=== PATIENT | female | born 1990 | race Caucasian/White ===

== ENCOUNTER 2021-06-10 11:56 | Emergency (ER) | payer OTHER, SELFPAY ==
--- NOTE | ~2021-06-10 | CT_ITS ---
EXAMINATION: CT ABDOMEN AND PELVIS WITHOUT CONTRAST CLINICAL INFORMATION: Left flank pain COMPARISON: None TECHNIQUE: Multidetector volumetric imaging was performed from the superior aspect of the liver through the pubic symphysis. Sagittal and coronal reformatted images were obtained on the technologist's workstation. This CT examination was performed using dose optimization techniques as appropriate, variously including the following: *Automated exposure control *Adjustment of mA and/or kV according to patient size (this includes techniques or standardized protocols for targeted exams where dose is matched to indication/reason for exam; i.e. extremities or head) *Use of iterative reconstruction technique DLP: 933 mGy-cm FINDINGS: LUNG BASES: The visualized lung bases are unremarkable. LIVER, GALLBLADDER, AND BILIARY TREE: The liver is normal in size, shape, and attenuation. No focal hepatic lesion or biliary ductal dilatation is present. The gallbladder has been removed. PANCREAS: Unremarkable. SPLEEN: Unremarkable. ADRENAL GLANDS: Unremarkable. KIDNEYS AND URETERS: The kidneys are normal in size, shape, and attenuation. No hydronephrosis, hydroureter, or calculi seen. No perinephric stranding. BLADDER: Not optimally distended. GASTROINTESTINAL TRACT: The small and large bowel are unremarkable. The appendix is unremarkable. ABDOMINAL WALL: There are small umbilical and periumbilical hernias containing fat. LYMPH NODES: There are small, small bowel mesentery and retroperitoneal lymph nodes. There are small bilateral inguinal lymph nodes. No enlarged lymph nodes are seen. VASCULAR: Unremarkable. PELVIC VISCERA: Unremarkable. OSSEOUS STRUCTURES: Unremarkable. CT/CT abdomen pelvis wo con IMPRESSION: No stone or hydronephrosis is seen. Small umbilical and periumbilical hernias containing fat.
--- NOTE | 2021-06-10 12:01 | ED_ITS ---
HPI - Nausea/Vomiting/Diarrhea General Chief complaint: Nausea/Vomiting/Diarrhea Stated complaint: N/V Time Seen by Provider: 06/10/21 12:01 Source: patient Mode of arrival: ambulatory Limitations: no limitations History of Present Illness MD elicited complaint: nausea, vomiting and abdominal pain Onset (ago): week(s) (4) Description of vomiting: food contents Associated nausea: Yes Associated abdominal pain: Yes Location of pain: LUQ Pain consistency: intermittent Severity: mild Quality: stabbing Exacerbating factors: eating Relieving factors: none Context: history of abdominal surgery Associated symptoms: loss of appetite, malaise and nausea/vomiting Related Data Previous Rx's Medication Instructions Recorded prochlorperazine maleate 10 mg 10 mg PO Q8H PRN #30 tab 06/10/21 tablet (Compazine) Allergies Allergy/AdvReac Type Severity Reaction Status Date / Time fluconazole [From DIFLUCAN] Allergy Mild RASH Unverified 07/01/20 16:04 naproxen [NAPROXEN] Allergy Mild AGITATION Unverified 07/01/20 16:04 aripiprazole [From ABILIFY] AdvReac Unknown SI Unverified 07/01/20 16:04 quetiapine [From SEROQUEL] AdvReac Unknown VOMITING Unverified 07/01/20 16:04 ziprasidone [From GEODON] AdvReac Unknown SI Unverified 07/01/20 16:04 Review of Systems Review of Systems: Constitutional : No Weight loss, No Fever, No Chills ENT/Mouth : No sore throat, No Rhinorrhea Eyes: No Swelling, No Redness Cardiovascular : No Chest Pain, No SOB, NoEdema Respiratory : No Cough, No Sputum, No Wheezing Gastrointestinal : Positive Nausea, Positive Vomiting, no Diarrhea, positive abdominal Pain, No Hematochezia, No Melena Genitourinary : No Dysuria, No Urinary Frequency, No Hematuria, No Urgency Musculoskeletal : No joint pain, No Myalgias, No Joint Swelling Skin : No Skin Lesions, No rash Neuro : No Weakness, No Numbness, No Dizziness, No Headache Psych : No Anxiety/Panic, No Depression Heme/Lymph: No Bruising, No Lymphadenopathy Endocrine : No Polyuria, No Polydipsia All other systems reviewed and are negative. Gastrointestinal: Gastrointestinal: Reports nausea PMFSH Past Medical History Attestation statement: The following information was validated with the patient. Medical History (Updated 06/10/21 @ 16:30 by Marimar Mcneill DO) Bipolar 1 disorder Surgical History (Updated 06/10/21 @ 12:33 by Marimar Mcneill DO) Hx of cholecystectomy Social History Social History (Updated 06/10/21 @ 12:33 by Marimar Mcneill DO) Patient Tobacco Use Status: Never used Tobacco Use of substances other than those prescribed or required for medical reasons: No Advance Directives: No Advance Directives Information Provided: No Physical Exam Vital Signs: Vital Signs: Last Vital Signs Pulse 70 06/10/21 16:08 Resp 16 06/10/21 16:08 BP 105/63 06/10/21 16:08 Pulse Ox 98 06/10/21 16:08 Body Mass Index 43.0 Appearance: Alert. Oriented X3. No acute distress. Eyes: Pupils equal, round and reactive to light. ENT: Pharynx normal. Neck: Normal inspection. Neck supple. CVS: Normal heart rate and rhythm. Pulses normal. Respiratory: No respiratory distress. Breath sounds normal. Abdomen: Soft and moderate ttp in LUQ Skin: Skin warm and dry. Normal skin color. Normal skin turgor. Extremities: No lower extremity edema. No calf ttp Neuro: Oriented X 3. No motor deficit. No sensory deficit. Course Course Course Narrative: feels much better at this time, pending CT scan can be DC home if negative signed out to Maddie LACEY MDM - Nausea/Vomiting/Diarrhea MDM Narrative Medical decision making narrative: 31 yo female with hx of bipolar disorder and cholecystectomy at this time very manic and hyperverbal - at this time will need labs, UA, CT scan for renal colic, IVF, dispo per results and findings. Lab Data Result diagrams: 06/10/21 12:50 06/10/21 12:50 Labs: Lab Results 06/10/21 06/10/21 06/10/21 Range/Units 12:50 12:50 12:50 WBC 10.8 (4.8-10.8) X10*3/uL RBC 4.07 L (4.20-5.50) X10*6/uL Hgb 12.2 (12.0-16.0) g/dl Hct 37.1 (37-47) % MCV 91.2 (80-98) fL MCH 30.0 (27.0-33.0) pg MCHC 32.9 (31.0-35.0) g/dl RDW 12.2 (11.0-16.0) % Plt Count 379 (160-400) X10*3/uL MPV 9.2 L (9.4-12.3) fL Immature Gran % (Auto) 0.2 (0.0-0.4) % Neut % (Auto) 83.7 H (45-73) % Lymph % (Auto) 10.0 L (20-40) % Wolfe % (Auto) 5.1 (2-11) % Eos % (Auto) 0.6 (0-4) % Baso % (Auto) 0.4 (0-2) % Lymph # (Auto) 1.1 L (1.2-4.9) X10*3/uL Wolfe # (Auto) 0.6 (0.1-1.2) X10*3/uL Eos # (Auto) 0.1 (0.0-0.4) X10*3/uL Baso # (Auto) 0.0 (0.0-0.2) X10*3/uL Abs Immat Gran (auto) 0.02 (0.00-0.03) X10*3/uL Absolute Neuts (auto) 9.1 H (2.0-8.3) X10*3/uL Absolute Nucleated RBC 0.000 (0.0-0.012) X10*3/uL Nucleated RBC % (auto) 0.0 (0.0-0.2) /100WBC Sodium 141 (135-145) mmol/L Potassium 3.7 (3.3-5.1) mmol/L Chloride 103 (96-108) mmol/L Carbon Dioxide 29 (22-29) mmol/L Anion Gap 13 (12-20) BUN 8 L (9-16) mg/dL Creatinine 0.95 (0.5-1.4) mg/dL Estim Creat Clear Calc 92.7 Estimated GFR > 60 Random Glucose 113 (60-115) mg/dL Calcium 9.8 (8.4-10.2) mg/dL Magnesium 2.6 (1.6-2.6) mg/dL Total Bilirubin 0.6 (0.0-1.0) mg/dL Direct Bilirubin 0.2 (0.0-0.5) mg/dL AST 21 (5-31) U/L ALT 25 (0-31) U/L Alkaline Phosphatase 93 (39-117) U/L Total Protein 7.5 (6.5-8.0) g/dL Albumin 4.2 (3.5-5.0) g/dL Lipase 19 (8-78) U/L Urine Color Urine Appearance Urine pH (5.0-8.0) Ur Specific [place] (1.005-1.025) Urine Protein (NEG-TRACE) MG/DL Urine Glucose (UA) (NEG) MG/DL Urine Ketones (NEG) MG/DL Urine Blood (NEG) Urine Nitrite (NEG) Ur Leukocyte Esterase (NEG) Urine RBC (0) /HPF Urine WBC (0-4) /HPF Ur Squamous Epith Cells /LPF Ur Renal Epithelial Cell /LPF Urine Bacteria /LPF Urine Mucus /LPF Urine Test (NEGATIVE) [place] (0.60-1.20) mmol/L COVID-19 (ZIGGY) Negative (Negative) COVID-19 Clin Com See Note 06/10/21 06/10/21 06/10/21 Range/Units 13:25 15:38 15:38 WBC (4.8-10.8) X10*3/uL RBC (4.20-5.50) X10*6/uL Hgb (12.0-16.0) g/dl Hct (37-47) % MCV (80-98) fL MCH (27.0-33.0) pg MCHC (31.0-35.0) g/dl RDW (11.0-16.0) % Plt Count (160-400) X10*3/uL MPV (9.4-12.3) fL Immature Gran % (Auto) (0.0-0.4) % Neut % (Auto) (45-73) % Lymph % (Auto) (20-40) % Wolfe % (Auto) (2-11) % Eos % (Auto) (0-4) % Baso % (Auto) (0-2) % Lymph # (Auto) (1.2-4.9) X10*3/uL Wolfe # (Auto) (0.1-1.2) X10*3/uL Eos # (Auto) (0.0-0.4) X10*3/uL Baso # (Auto) (0.0-0.2) X10*3/uL Abs Immat Gran (auto) (0.00-0.03) X10*3/uL Absolute Neuts (auto) (2.0-8.3) X10*3/uL Absolute Nucleated RBC (0.0-0.012) X10*3/uL Nucleated RBC % (auto) (0.0-0.2) /100WBC Sodium (135-145) mmol/L Potassium (3.3-5.1) mmol/L Chloride (96-108) mmol/L Carbon Dioxide (22-29) mmol/L Anion Gap (12-20) BUN (9-16) mg/dL Creatinine (0.5-1.4) mg/dL Estim Creat Clear Calc Estimated GFR Random Glucose (60-115) mg/dL Calcium (8.4-10.2) mg/dL Magnesium (1.6-2.6) mg/dL Total Bilirubin (0.0-1.0) mg/dL Direct Bilirubin (0.0-0.5) mg/dL AST (5-31) U/L ALT (0-31) U/L Alkaline Phosphatase (39-117) U/L Total Protein (6.5-8.0) g/dL Albumin (3.5-5.0) g/dL Lipase (8-78) U/L Urine Color YELLOW Urine Appearance HAZY Urine pH 6.5 (5.0-8.0) Ur Specific [place] <= 1.005 (1.005-1.025) Urine Protein NEG (NEG-TRACE) MG/DL Urine Glucose (UA) NEG (NEG) MG/DL Urine Ketones NEG (NEG) MG/DL Urine Blood NEG (NEG) Urine Nitrite NEG (NEG) Ur Leukocyte Esterase 1+ H (NEG) Urine RBC 0 (0) /HPF Urine WBC 5-9 H (0-4) /HPF Ur Squamous Epith Cells 3+ /LPF Ur Renal Epithelial Cell TRACE /LPF Urine Bacteria TRACE /LPF Urine Mucus 2+ /LPF Urine Test NEGATIVE (NEGATIVE) [place] 0.35 L (0.60-1.20) mmol/L COVID-19 (ZIGGY) (Negative) COVID-19 Clin Com Discharge Plan Discharge Clinical Impression: Acute left flank pain Vomiting Qualifiers: Vomiting type: unspecified Vomiting Intractability: non-intractable Nausea presence: with nausea Qualified Code(s): R11.2 - Nausea with vomiting, unspe cified Patient Disposition: Home, Self-Care Instructions: Acute Nausea and Vomiting (ED), Abdominal Pain (ED) Additional Instructions: return to ED for any worsening symptoms or concerns Prescriptions: New prochlorperazine maleate [Compazine] 10 mg tablet 10 mg PO Q8H PRN (Reason: nausea and vomiting) Qty: 30 RF: 0 Referrals: Dipesh Shah MD [Primary Care Provider] - 3 days (if not better)
[2021-06-10 12:05] VITALS: BP 113/86; BP 126/73; PULSE 100; PULSE 111; RESP 16; O2SAT 97; BMI 43.0
[2021-06-10] MEDS: 0.9 % Sodium Chloride 1,000 ML 999 ML IVCONT (12:49)
[2021-06-10] MEDS: ondansetron HCL 4 MG/2 ML VIAL IVPUSH (12:49)
[2021-06-10 13:03] LABS: MANUAL DIFF FLAG NO
[2021-06-10 13:04] LABS: Basophils Percent Auto 0.4 % (0-2); Eosinophils Absolute Auto 0.1 X10*3/uL (0.0-0.4); Eosinophils Percent Auto 0.6 % (0-4); Hematocrit 37.1 % (37-47); Hemoglobin 12.2 g/dl (12.0-16.0); Imm Gran Abs Auto 0.02 X10*3/uL (0.00-0.03); Imm Gran Pct Auto 0.2 % (0.0-0.4); Lymphocytes Absolute Auto 1.1 X10*3/uL (1.2-4.9); Mean Corpuscular HGB Conc 32.9 g/dl (31.0-35.0); Mean Corpuscular Volume 91.2 fL (80-98); Mean Platelet Volume 9.2 fL (9.4-12.3); Monocytes Absolute Auto 0.6 X10*3/uL (0.1-1.2); Monocytes Percent Auto 5.1 % (2-11); Neutrophils Absolute Auto 9.1 X10*3/uL (2.0-8.3); Neutrophils Percent Auto 83.7 % (45-73); Platelet Count 379 X10*3/uL (160-400); Red Blood Count 4.07 X10*6/uL (4.20-5.50); Red Cell Distribution Width 12.2 % (11.0-16.0); White Blood Count 10.8 X10*3/uL (4.8-10.8)
[2021-06-10 13:33] LABS: COVID-19 Test Negative (Negative); IDNOW Serial# 9DD0AD1C
[2021-06-10 13:36] LABS: Alanine Aminotransferase 25 U/L (0-31); Albumin Level 4.2 g/dL (3.5-5.0); Alkaline Phosphatase 93 U/L (39-117); Anion Gap 13 (12-20); Aspartate Amino Transferase 21 U/L (5-31); Bilirubin Direct 0.2 mg/dL (0.0-0.5); Bilirubin Total 0.6 mg/dL (0.0-1.0); Blood Urea Nitrogen 8 mg/dL (9-16); Calcium 9.8 mg/dL (8.4-10.2); Carbon Dioxide 29 mmol/L (22-29); Chloride 103 mmol/L (96-108); Creatinine Clr Calc Pharmacy 92.7; Estimated Glomerular Filt Rate > 60; Glucose Random 113 mg/dL (60-115); Lipase 19 U/L (8-78); Magnesium 2.6 mg/dL (1.6-2.6); Potassium 3.7 mmol/L (3.3-5.1); Sodium 141 mmol/L (135-145); Total Protein 7.5 g/dL (6.5-8.0)
[2021-06-10 13:57] LABS: Lithium 0.35 mmol/L (0.60-1.20)
[2021-06-10] MEDS: diphenhydrAMINE HCL 50 MG/ML VIAL 25 MG IVPUSH (14:07)
[2021-06-10] MEDS: Prochlorperazine Edisylate 10 MG/2 ML VIAL 5 MG IVPUSH (14:07)
[2021-06-10 15:47] LABS: Glucose Urine UA NEG (NEG); Leukocyte Esterase Urine 1+ (NEG); Nitrite Urine NEG (NEG); PH 6.5 (5.0-8.0); Specific Gravity - Urine <= 1.005 (1.005-1.025); UACC Culture Trigger YES; Urine Blood NEG (NEG); Urine Ketones NEG (NEG); Urine Protein NEG (NEG-TRACE)
[2021-06-10 15:49] LABS: Appearance Urine HAZY; Color Urine YELLOW; UPreg QC Valid YES; Urine Pregnancy NEGATIVE (NEGATIVE)
[2021-06-10 15:55] LABS: Bacteria Urine TRACE /LPF; Mucus Urine 2+ /LPF; RBC Urine 0 /HPF (0); Renal Epithelial Cells Urine TRACE /LPF; Squamous Epithelial Cell Urine 3+ /LPF
[2021-06-10 16:08] VITALS: BP 105/63; PULSE 70; RESP 16; O2SAT 98
[2021-06-10] MEDS: LORazepam 1 MG TABLET PO (16:37)
== END 2021-06-10 17:59 | disposition home or self-care (01) ==
PROVIDERS: Emergency Provider Emergency Medicine; PCP Internal Medicine
DX: R10.9 Unspecified abdominal pain (principal); R11.2 Nausea with vomiting, unspecified; Z20.822 Contact with and (suspected) exposure to COVID-19; F31.9 Bipolar disorder, unspecified; Z79.899 Other long term (current) drug therapy
CPT/HCPCS: 36415; 74176; 80048; 80076; 80178; 81001; 81025; 83690; 83735; 85025; 87086; 87635; 96361; 96374; 96375; 99284; J1200; J2405

== ENCOUNTER 2021-06-27 17:23 | Emergency (ER) | payer OTHER, SELFPAY ==
[2021-06-27 18:37] VITALS: BP 139/104; PULSE 83; RESP 16; TEMP 36.4; O2SAT 98; BMI 43.0
--- NOTE | 2021-06-27 18:41 | ED_ITS ---
HPI - Abdominal Pain General Chief Complaint: Abdominal Pain Stated Complaint: abd pain Time Seen by Provider: 06/27/21 18:37 Source: patient Mode of arrival: ambulatory Limitations: no limitations History of Present Illness HPI narrative: 31-year-old female presenting to the ED with request for a general surgeon referral for her hernias. She reports that she has been having intermittent abdominal pain from the hernia sites and she went to her primary care provider and they sent her here for further evaluation and treatment. Patient was seen here on 06/10/2021 and had a full workup and this is when she was told that she had hernias. And since then she felt like they have been bothering her. Denies any other symptoms complaints or concerns at this time. MD elicited complaint: abdominal pain Pertinent past history: other (Abdominal hernias) Onset (ago): day(s) Pain Consistency: intermittent Location: periumbilical Severity: mild Quality: aching Radiation: none Migration to: no migration Exacerbating factors: nothing Relieving factors: nothing Associated symptoms: denies other symptoms Related Data Previous Rx's Medication Instructions Recorded prochlorperazine maleate 10 mg 10 mg PO Q8H PRN #30 tab 06/10/21 tablet (Compazine) oxycodone 5 mg tablet 5 mg PO Q6H PRN #14 tab 06/27/21 Allergies Allergy/AdvReac Type Severity Reaction Status Date / Time fluconazole [From DIFLUCAN] Allergy Mild RASH Unverified 07/01/20 16:04 naproxen [NAPROXEN] Allergy Mild AGITATION Unverified 07/01/20 16:04 aripiprazole [From ABILIFY] AdvReac Unknown SI Unverified 07/01/20 16:04 quetiapine [From SEROQUEL] AdvReac Unknown VOMITING Unverified 07/01/20 16:04 ziprasidone [From GEODON] AdvReac Unknown SI Unverified 07/01/20 16:04 Review of Systems Review of Systems Constitutional : No Weight loss, No Fever, No Chills, No Night Sweats, No Fatigue, NoMalaise ENT/Mouth: No ear pain, No sore throat, No Difficulty swallowing Cardiovascular : No Chest Pain, No SOB, No Dyspnea on Exertion, No Orthopnea, NoEdema, No Palpitations Respiratory : No Cough, No Sputum, No Wheezing, No Dyspnea Gastrointestinal : Positive abdominal pain, No Nausea, No Vomiting, No Diarrhea, No blood streaked emesis, No coffee-ground emesis, No gross hematemesis, No blood streak stool, No gross hematochezia, No Melena Genitourinary : No irregular bleeding, No Dysuria, No Urinary Frequency, No Hematuria,No Urinary Incontinence, No Urgency, No Flank Pain Musculoskeletal : No joint pain, No Myalgias, No Joint Swelling Skin : No Skin Lesions, No rash Neuro : No Weakness, No Numbness, No Paresthesias, No Loss of Consciousness, NoDizziness, No Headache Psych : No Social Issues, Heme/Lymph: No Bruising, No Bleeding,No Lymphadenopathy Endocrine : No Polyuria, No Polydipsia, No Temperature Intolerance Yes all other systems are reviewed and are negative Physical Exam Vital Signs: Vital Signs: Last Vital Signs Temp 97.6 F 06/27/21 18:37 Pulse 83 06/27/21 18:37 Resp 16 06/27/21 18:37 BP 139/104 H 06/27/21 18:37 Pulse Ox 98 06/27/21 18:37 Body Mass Index 43.0 vital signs have been reviewed as normal and appeared to be correct. Blood pressure normal. Heart rate normal. Respiration rate normal. Temperature normal. Oxygen saturation normal. Appearance: Alert. Oriented X3. No acute distress. Head: Normal external exam. Normocephalic. Eyes: PERRLA. EOMI. Conjunctiva and sclera normal. Eyelids normal. ENT: Pharynx normal. Uvula midline. Moist mucous membranes. No trismus noted. No drooling noted. No muffled voice noted. Neck: Normal inspection. Neck supple. FROM. No adenopathy. No meningeal signs. CVS: Normal heart rate and rhythm. Heart sound normal. No murmurs noted. Pulses normal throughout. Respiratory: No respiratory distress. Painless inspiration. Breath sounds normal. No wheezes/rales/rhonchi noted. Chest nontender. No accessory muscle usage noted or decreased air movement noted. Abdomen: Soft and nontender. Nondistended. No guarding. No rigidity. Bowel sounds normal in all 4 quadrants. No distention noted. No organomegaly noted. No visible injury noted. No rebound tenderness. Negative Rovsing sign. Negative obturator's sign. No hernia noted on my exam. Not consistent with incarceration of hernia. Negative psoas sign. Negative Hassan sign. Back: No CVA tenderness. Full range of motion noted. Skin: Skin warm and dry. Normal skin color. Normal skin turgor. No rashes/lesions/lacerations noted. Extremities: Extremities exhibit normal range of motion. Extremities nontender. Neuro: Oriented X 3. No motor deficit. No sensory deficit. Reflexes normal. Normal steady gait. Course Course Course Narrative: 31-year-old female presenting to the ED with complaints of intermittent hernia pain over the past few days no pain at this time requesting for general surgery referral. No imaging or labs indicated at this time as patient reports she does not have any active abdominal pain at this time she denies any other symptoms. On exam she does not have any tenderness and there are no signs of incarcerated or strangulated hernia. Will DC home with symptomatic treatment a General surgery referral and instructions return if any new or worsening symptoms to follow up with primary care provider as well. Patient understands agrees with this plan. MDM - Abdominal Pain Medical Records Attestation: I reviewed the patient's medical records. Discharge Plan Discharge Clinical Impression: Hernia, umbilical Patient Disposition: Home, Self-Care Instructions: Umbilical Hernia (ED), Umbilical Hernia Repair (DC) Prescriptions: New oxycodone 5 mg tablet 5 mg PO Q6H PRN (Reason: pain) Qty: 14 RF: 0 No Action prochlorperazine maleate [Compazine] 10 mg tablet 10 mg PO Q8H PRN (Reason: nausea and vomiting) Qty: 30 RF: 0 Referrals: Joni Marley MD [Physician] - 2 days (Call to make a follow-up appointment within the next few weeks) Interventions: ED Discharge Assessment Last Done: 06/27/21 18:50 Discharge Date/Time: 06/27/21 18:51 Print Language: Greenlandic [facility] Past Medical History Attestation statement: The following information was validated with the patient. Medical History Bipolar 1 disorder Surgical History Hx of cholecystectomy Social History Social History Patient Tobacco Use Status: Never used Tobacco Advance Directives: No Advance Directives Information Provided: No
== END 2021-06-27 18:51 | disposition home or self-care (01) ==
PROVIDERS: Emergency Provider Emergency Medicine; PCP Internal Medicine
DX: K42.9 Umbilical hernia without obstruction or gangrene (principal); R10.84 Generalized abdominal pain; Z79.899 Other long term (current) drug therapy
CPT/HCPCS: 99283

== ENCOUNTER → 2021-08-24 14:13 | Outpatient (BNVA) | payer OTHER, SELFPAY | PROVIDERS: PCP Internal Medicine; Referring Provider Internal Medicine; Visit Provider Surgery | DX: R10.33 Periumbilical pain (principal); F41.8 Other specified anxiety disorders; F20.9 Schizophrenia, unspecified; F06.34 Mood disorder due to known physiological condition with mixed features; Z90.49 Acquired absence of other specified parts of digestive tract; Z88.3 Allergy status to other anti-infective agents; Z88.8 Allergy status to other drugs, medicaments and biological substances; Z79.899 Other long term (current) drug therapy | CPT/HCPCS: 99202 ==

== ENCOUNTER 2021-09-16 14:37 | Outpatient (REF) | payer OTHER, SELFPAY ==
--- NOTE | ~2021-09-16 | CT_ITS ---
EXAMINATION: CT ABDOMEN AND PELVIS WITHOUT CONTRAST CLINICAL INFORMATION: Periumbilical pain COMPARISON: Previous CT of the abdomen and pelvis May 2021 TECHNIQUE: Multidetector volumetric imaging was performed from the superior aspect of the liver through the pubic symphysis. Sagittal and coronal reformatted images were obtained on the technologist's workstation. This CT examination was performed using dose optimization techniques as appropriate, variously including the following: *Automated exposure control *Adjustment of mA and/or kV according to patient size (this includes techniques or standardized protocols for targeted exams where dose is matched to indication/reason for exam; i.e. extremities or head) *Use of iterative reconstruction technique DLP: 610 mGy-cm FINDINGS: LUNG BASES: The visualized lung bases are unremarkable. LIVER, GALLBLADDER, AND BILIARY TREE: The liver is normal in size, shape, and attenuation. No focal hepatic lesion or biliary ductal dilatation is present. The gallbladder has been removed. PANCREAS: Unremarkable. SPLEEN: Unremarkable. ADRENAL GLANDS: Unremarkable. KIDNEYS AND URETERS: The kidneys are normal in size, shape, and attenuation. No hydronephrosis, hydroureter, or calculi seen. No perinephric stranding. BLADDER: Unremarkable. GASTROINTESTINAL TRACT: The small and large bowel are unremarkable. The appendix is unremarkable. ABDOMINAL WALL: There is small umbilical and supraumbilical hernias containing fat. LYMPH NODES: There are no enlarged lymph nodes. There are small retroperitoneal lymph nodes that are stable. There is no ascites. VASCULAR: Unremarkable. PELVIC VISCERA: Unremarkable. OSSEOUS STRUCTURES: Unremarkable. CT/CT abdomen pelvis wo con IMPRESSION: Small umbilical and supraumbilical hernias containing fat. This is similar to May 2021 exam. Fleischner guidelines were followed.
== END 2021-09-16 14:38 | disposition home or self-care (01) ==
LOC: HO.CT 14:37
PROVIDERS: PCP Internal Medicine; Visit Provider Surgery
DX: R10.33 Periumbilical pain (principal)
CPT/HCPCS: 74176

== ENCOUNTER → 2021-09-29 14:33 | Outpatient (BNVA) | payer OTHER, SELFPAY | PROVIDERS: PCP Internal Medicine; Referring Provider Internal Medicine; Visit Provider Surgery | DX: R10.33 Periumbilical pain (principal) | CPT/HCPCS: 99212 ==

== ENCOUNTER 2024-11-24 12:18 | Outpatient (REF) | payer OTHER, SELFPAY ==
--- OUTSIDE RECORDS SUMMARY | 2024-11-24 14:56 | XMS_ITS | Clinical Summary ---
Author Organization [facility] ity Address [address] [place] [address] Care Team Providers Care Office Clinician Name Role Phone Cecily Mcfarland Primary Care Provider [phone] Allergies Active Allergy Reactions Criticality Noted Date Comments Blue Dye Nausea And Vomiting High 10/26/2021 Fluticasone Propion-Salmeterol Headache Medium 03/02/2023 Patiente states gets also chest pain and thrush. Fluticasone-Umeclidin- Vilanter Headache Medium 03/02/2023 Patient states getting thrush, headaches and chest discomfort Naproxen Sodium Other 06/20/2013 Up for 2 days, non-stop talking and feeling like she always has to move Medications umeclidinium-vi lanteroL (Anoro Ellipta) 62.5-25 mcg/actuation inhaler Inhale 1 puff 1 (one) time each day. 08/24/2023 Active albuterol HFA (PROAIR HFA ; PROVENTIL HFA ; VENTOLIN HFA) 90 mcg/actuation inhaler Inhale 2 puffs every 4 (four) hours if needed for wheezing. 08/24/2023 Active levothyroxine (SYNTHROID, LEVOTHROID) 50 mcg tablet Take 1 tab daily along with the 100 mcg 02/27/2022 Active levothyroxine (SYNTHROID, LEVOTHROID) 100 mcg tablet Take 1 tablet by mouth daily along with the 50 mcg 01/31/2022 Active gabapentin (NEURONTIN) 100 mg capsule Take 1 capsule (100 mg total) by mouth at bedtime. Active benztropine (COGENTIN) 1 mg tablet Take 1 tablet (1 mg total) by mouth 2 (two) times a day. Active inhalational spacing device inhaler 1 Device by Does not apply route as needed for Other (to be used with inahlers). 04/19/2022 Active Active Problems Problem Noted Date Diagnosed Date Hypothyroid 12/03/2023 Depression 12/03/2023 Anxiety 12/03/2023 Schizophrenia 12/03/2023 Morbid obesity with BMI of 40.0-44.9, adult 11/15 Lab test negative for COVID-19 virus 04/19/2021 Reactive airway disease 02/18/2021 High cholesterol 02/15/2018 PVD (peripheral vascular disease) 01/24/2016 Immunizations Name Administration Dates Next Due HPV 9-valent (Gardisil) 9yo to less than 46yo ,03/07/2021 HPV, Quadrivalent 09/26/2016,09/22/2014 Influenza Quadravalent, MDCK , 0.5ml, preservative free (Flucelvax) 6mo and older 06/25/2020 Influenza trivalent, 0.5mL, preservative free (Fluarix; FluLaval; Fluzone) ages 6mo and older (Afluria) 3 years and older 11/14/2017,08/04/2016 Influenza trivalent, with pr eservative (Fluzone; Afluria) 6mo and older 08/04/2016,07/25/2014 Moderna SARS-CoV-2 COVID-19, mRNA, LNP-S, preservative free 07/01/2021,05/29/2021 Pneumococcal polysaccharide 23 valent (Pneumovax 23) 2yo and older 12/26/2021 Tdap Tetanus diptheria acell ular pertussis (Boostrix; Adacel) 7yo and older 10/21/2013 Surgical History Surgery Date Site/Laterality Comments BREAST REDUCTION 2009 PROCEDURE: CO BREAST REDUCTION MULTIPLE TOOTH EXTRACTIONS 09/27/2017 PROCEDURE: EACH ADD TOOTH EXTRACTION; COMMENT: all teeth removed ESOPHAGOGASTRODUODENOSCOPY 04/11/2018 PROCEDURE: CO EGD TRANSORAL BIOPSY SINGLE/MULTIPLE; COMMENT: [facility] - mild antral gastritis, otherwise normal. Pathology: nonspecific mild gastritis without H. pylori. CHOLECYSTECTOMY PROCEDURE: CO LAPAROSCOPY SURG CHOLECYSTECTOMY BREAST REDUCTION PROCEDURE: CO BREAST REDUCTION Medical History Medical History Date Comments Depression DX:Depression Anxiety DX:Anxiety Schizophrenia (CMS/HCC) DX:Schiz ophrenia (HCC) Hypothyroid DX:Hypothyroid Poor personal hygiene DX:Poor pe rsonal hygiene Morbid obesity (CMS/HCC) DX:Morb id obesity (HCC) Family History Medical History Relation Name Comments Heart attack Aunt Heart attack Father Ulcers Father Diabetes Father's side Other: cervical ca Other Adriana Heart attack Uncle Breast cancer Neg Hx Cancer of Small Bowel Neg Hx Colon cancer Neg Hx Kidney cancer Neg Hx Ovarian cancer Neg Hx Pancreatic cancer Neg Hx Uterine cancer Neg Hx Relation Name Status Comments Aunt Alive paternal Father Alive Father's side Mother Alive Other Adriana Alive Sister Alive Uncle Alive paternal Social History Tobacco Use Types Packs/Day Years Used Date Smoking Tobacco: Never Smokeless Tobacco: Never Alcohol Use Standard Drinks/Week Comments Yes 0 (1 standard drink = 0.6 oz pur e alcohol) Comments Unknown Sex and Gender Information Value Date Recorded Sex Assigned at Not on file Legal Sex Female 4:02 PM EST Gender Identity Not on file Sexual Orientation Not on file Obstetrics History Last Filed Vital Signs Vital Sign Reading Time Taken Comments Blood Pressure 124/60 07/24/2024 11:26 AM EDT Pulse 67 07/24/2024 11:26 AM EDT Temperature - - Respiratory Rate - - Oxygen Saturation - - Inhaled Oxygen Concentration - - Weight 83.6 kg (184 lb 3.2 oz) 07/24/2024 11:26 AM EDT Height 152.4 cm (5') 07/24/2024 11:26 AM EDT Body Mass Index 35.97 07/24/2024 11:26 AM EDT Plan of Treatment Upcoming Encounters Date Type Department Care Team (Late st Contact Info) Description 01/22/2025 1:00 PM EDT Office Visit Pulmonolgy - [place] [address] [facility] [address] [place] [id number] Neha Leach NP [address] [facility] [address] [place] [address] Health Maintenance Due Date Last Done Comments Hepatitis B Vaccines (1 of 3 - 19+ 3-dose series) 01/15/2011 DTaP,Tdap,and Td Vaccines (2 - Td or Tdap) 11/18/2013 10/21/2013 Depression Screening 09/23/2022 Social Influencers of Health Screening 09/23/2022 Pneumococcal Vaccine: Pediatrics (0 to 5 Years) and At-Risk Patients (6 to 64 Years) (2 of 2 - PCV) 12/26/2022 12/26/2021 Cervical Cancer Screening: Pap Smear 03/07/2024 03/07/2021, 03/07/2021 COVID-19 Vaccine ( - season) 2024 07/01/2021, 05/29/2021 Influenza Vaccine (#1) 2024 , 11/14/2017, 08/04/2016, Additional history exists Cholesterol Screening (Lipid Panel) 12/21/2025 12/21/2020 HIV Screening Completed 03/07/2021 Hepatitis C Screening Completed 03/07/2021 HPV Vaccines Completed 04/19/2021, 02/13, 09/26/2016, Additional history exists HIB Vaccines Aged Out No longer eligi ble based on patient's age to complete this topic Hepatitis A Vaccines Aged Out No long er eligible based on patient's age to complete this topic IPV Vaccines Aged Out No longer eligi ble based on patient's age to complete this topic MMR Vaccines Aged Out No longer eligi ble based on patient's age to complete this topic Meningococcal ACWY Vaccine Aged Out N o longer eligible based on patient's age to complete this topic Meningococcal B Vacine Aged Out No lo nger eligible based on patient's age to complete this topic RSV Immunization Patients Under 20 months Aged Out No longer eligible based on patient's age to complete this topic Varicella Vaccines Aged Out No longer eligible based on patient's age to complete this topic Procedures Procedure Name Priority Date/Time Associated Diagnosis Comments HM HEPATITIS C SCREENING Routine 03/07/2021 HM HIV SCREENING Routine 03/07/2021 PAP SMEAR Routine 03/07/2021 LIPID PANEL Routine 12/21/2020 from Last 3 Months or Most Recently Relevant to Health Maintenance Results * Hm HIV Screening (03/07/2021) Pathologist [facility] HIV Screening abstracted Historical Provider HEALTH MAINTENANCE Final Result * Hepatitis C Screening (03/07/2021) Pathologist [facility] Hepatitis C Screening abstracted Historical Provider HEALTH MAINTENANCE Final Result * Pap smear (03/07/2021) 03/07/2021 Narrative HISTORICAL TESTING LAB RESULTING AGENCY - 03/17/2021 7:26 AM EDT [id number] THINPREP PAP, IMAGED: NEGATIVE FOR SQUAMOUS INTRAEPITHELIAL LESION AND MALIGNANCY . RAJAT TOBAR(ASCP) (CASE ELECTRONICALLY SIGNED 03 16 2021) ADEQUACY: SATISFACTORY ENDOCERVICAL/TRANSFORMATION ZONE COMPONENT PRESENT. SOURCE: THINPREP PAP HPV IF ASCUS, CERVICAL, IMAGED CLINICAL INFORMATION: HPV IF DIAGNOSIS OF ASCUS. PAP HX NEG. NO LMP RECORDED. Z12.4, Z01.419 Ann [facility] LAB CYTOLOGY ORDERABLES Fin al Result HISTORICAL TESTING LAB RESULTING AGENCY * (ABNORMAL) Lipid panel (12/21/2020) Pathologist [facility] LDL/HDL Ratio 3 0 - 4 Triglycerides 97 0 - 150 mg/dL Cholesterol 177 0 - 200 mg/dL HDL 52 >=40 mg/dL LDL Cholesterol 106(A) 0 - 100 mg/dL Blood Venous blood specimen / Unknown Historical Provider LAB BLOOD ORDERABLES Brittaney l Result from Last 3 Months or Most Recently Relevant to Health Maintenance Care Teams Office Clinician Relationship Specialty Start Date End Date Cecily Mcfarland PA [address] [place] [id number] PCP - General 08/24/23
[2024-11-24 15:13] LABS: Thyroid Stimulating Hormone 50.18 uIU/mL (0.32-4.0)
[2024-11-25 13:08] LABS: Thyroid Peroxidase Antibodies 49 IU/mL (<9)
== END 2024-11-24 12:19 | disposition home or self-care (01) ==
LOC: HO.LAB 12:18
PROVIDERS: PCP Physician Assistant; Visit Provider Student in an Organized Health Care Education/Training Program
DX: E06.3 Autoimmune thyroiditis (principal); Z79.890 Hormone replacement therapy
CPT/HCPCS: 36415; 84439; 84443; 86376; 99202

== ENCOUNTER 2024-11-24 12:18 | Outpatient (AMB) | payer OTHER, SELFPAY ==
--- NOTE | 2024-11-24 12:40 | MHC.OFFVIS ---
Vital Signs 11/24/24 12:51 Height 5 ft 1.65 in Weight 173 lb 1.006 oz BMI 32.0 BP 100/64 Blood Pressure Location Rt brachial Position Sitting Pulse 84 Pulse Source Pulse Oximeter Pulse Oximetry (%) 98 Oxygen Delivery Method Room Air Intake Visit Reasons: Hypothyroidism/Left vm Intake Note: Hypotyroidism Purchaser Required: No Allergies fluconazole [From DIFLUCAN] Allergy (Mild, Verified 11/24/24 12:52) RASH naproxen [NAPROXEN] Allergy (Mild, Verified 11/24/24 12:52) AGITATION aripiprazole [From ABILIFY] Adverse Reaction (Unknown, Verified 11/24/24 12:52) SI quetiapine [From SEROQUEL] Adverse Reaction (Unknown, Verified 11/24/24 12:52) VOMITING ziprasidone [From GEODON] Adverse Reaction (Unknown, Verified 11/24/24 12:52) SI PFSH Medical History Asthma Bipolar 1 disorder Morbid obesity Thyroid disorder Umbilical pain Surgical History Hx of cholecystectomy Family History Father High blood pressure Social History Patient Tobacco Use Status: Never used Tobacco Physical Exam Vital Signs: Last Vital Signs Pulse 84 11/24/24 12:51 BP 100/64 11/24/24 12:51 Pulse Ox 98 11/24/24 12:51 Oxygen Delivery Method Room Air 11/24/24 12:51 BMI result Body Mass Index 32.0 Coding
--- NOTE | 2024-11-24 12:49 | MHC.OFFVIS ---
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 Accompanied by: Self / Same As Patient Allergies fluconazole [From DIFLUCAN] Allergy (Mild, Verified 11/24/24 12:52) RASH naproxen [NAPROXEN] Allergy (Mild, Verified 11/24/24 12:52) AGITATION aripiprazole [From ABILIFY] Adverse Reaction (Unknown, Verified 11/24/24 12:52) SI quetiapine [From SEROQUEL] Adverse Reaction (Unknown, Verified 11/24/24 12:52) VOMITING ziprasidone [From GEODON] Adverse Reaction (Unknown, Verified 11/24/24 12:52) SI Medication List - Last Reconciled 11/24/24 by Lakeisha Gil MD albuterol sulfate 90 mcg/actuation 2 inhalations inhalation Q6H PRN benztropine 1 mg PO BID gabapentin 100 mg PO BEDTIME levothyroxine mcg PO DAILY umeclidinium-vilanterol 62.5-25 mcg/actuation (Anoro Ellipta) 1 ea inhalation DAILY HPI Comments Details: 34 years old female here today for initial hypothyroidism. Here with partner . Diagnosed with hypothyroidism at age 12/11 05/08/2024 TSH elevated at 19.5, levothyroxine was titrated up to 125 mcg daily. 08/01/2024 TSH noted to be elevated at 8.7 levothyroxine was titrated up to 137 mcg daily, she developed vomiting to this dose, as she has allergies to blue dye with nausea and vomiting. Subsequently she failed her levothyroxine 100 mcg daily prescription. Labs 09/26/2024 TSH 8.5 hi Free T4 1.42 normal. Says currently on 100 mcg of levothyroxine, appropriate administration and adherence. Takes levothyroxine first thing in the morning empty stomach waits 30 mins before breakfast Vomiting from blue dye. Bowel movements regular Periods regular In September lost 22 lbs says its because of her thyroid. Says her mood irritable . Energy is normal. Patient currently denies heat or cold intolerance, hair loss, palpitation, anxiety, , changes in appearance of eyes or vision changes, tremors, increased diaphoresis or dry skin. ? Patient denies any difficulty swallowing, pain on swallowing or voice changes or difficulty breathing. Patient denies any history of childhood neck radiation. Denies having ever used amiodarone or biotin supplements. Was on lithium for short period many years ago. Patient denies any family history of thyroid cancer . Maternal grandmother had hypothyroidism. no plans for She is sexually active Social history Smokes marijuana Not cigarettes Alcohol : 2 nips a day Unemployed , on disability Physical exam General: sitting comfortably in no acute distress HEENT: normocephalic/atraumatic Neck: supple, symmetrical, no thyromegaly , no dorsocervical or supraclavicular fat pads Cardiac: normal heart sounds Pulm: normal breath sounds B/L, no added breath sounds Abd: not distended, no tenderness Extremities: no edema, no signs of myxedema Neuro: AAO x3, Speech: normal, no facial droop, moving all 4 extremities PFSH Medical History Asthma Bipolar 1 disorder Morbid obesity Thyroid disorder Umbilical pain Surgical History Hx of cholecystectomy Family History (Updated 11/24/24 @ 13:16 by Laura Wilkinson CMA) Father High blood pressure Maternal Aunt No problems noted. 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 She has required up titration of her levothyroxine medication in the past few months, however it seems like she required the 137 mcg of levothyroxine dosage which she could not tolerate due to blue dye in it. Given her allergic reaction of vomiting to dyes, she can not tolerate levothyroxine and has had adverse reaction to it, we will prescribe her Tirosint which does not have dyes in it. I will prescribe her Tirosint 137 mcg dose. She will obtain a set of blood work for me today, and 6 weeks after starting Tirosint 137 mcg daily. Plan: -start Tirosint 137 mcg daily -discussed appropriate administration -counseled regarding need for increased thyroid medication in and to call our office if she ever becomes . -do blood work today -repeat another set of blood work after 6 weeks of starting Tirosint -follow up in 8 weeks Plan I spent 45 minutes in reviewing the record, seeing the patient and documenting in the medical record. 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
[2024-11-24 12:51] VITALS: BP 100/64; PULSE 84; O2SAT 98; BMI 32.0
== END 2024-11-24 13:42 | disposition home or self-care (01) ==
PROVIDERS: PCP Physician Assistant; Visit Provider Student in an Organized Health Care Education/Training Program
DX: E06.3 Autoimmune thyroiditis (principal)
CPT/HCPCS: 99204

== ENCOUNTER 2025-01-26 12:12 | Outpatient (REF) | payer OTHER, SELFPAY ==
[2025-01-26 14:04] LABS: Free T4 (Free Thyroxine) 1.24 ng/dL (0.71-1.85); Thyroid Stimulating Hormone 3.26 uIU/mL (0.32-4.0)
--- OUTSIDE RECORDS SUMMARY | 2025-01-26 14:11 | XMS_ITS ---
Author Organization [facility] Address [address] [place] [id number] Care Team Providers Care Press Tender Star Signal Name Role Phone No, PCP Primary Care Provider Ken Puga Unavailable [phone] Encounters Encounter Location Date Provider Diagnosis [facility] [address] [place] [id number] 12/10/2023 Ken Hermosillo Plan Of Treatment No Information Progress Notes * Elizabeth OCHOA LDOB: [birth year] (33 yo M)Acc No.[id number]:12/10/2023 Case Management Patient:?Elizabeth Ochoa Provider:?Ken Bradford :1990???Age:33 Y???Sex:Male Valdez e:12/10/2023 Address:[address] [place], [place] [id number] Pcp:PCP No Subjective: * Chief Complaints: * ??? * HPI: ???Social Service:?Date of encounter?[id number].?Referral Source?walk-in, self.?Interpretation for medical provider?housing.?Follow-up Required:?yes,?Type of follow-up: CM.?Pt comprehension?Pt agrees with plan, Patient understood process and assisted with process.?Action taken (old)?form completion: Intk, authorization to release info.? * Medical History:? Objective: Assessment: Plan: * Treatment: * Images: Billing Information: * Visit Code:? * Procedure Codes:? Care Plan Details* * Sign off status: Completed true * Provider:?Ken Bradford Date:?12/10/2023 Generated for Jordi kaur/Joshua/Zulyitting on:?01/26/2025 02:11 PM EDT History and Physical Notes * HPI (History of Present Illness) Category Sub-Category Detail Notes Social Service Referral Source walk-in, self Interpretation for medical provider hous ing Action taken (old) form completion: Int k, authorization to release info Follow-up Required: yes, Type of follow- up: CM Pt comprehension Pt agrees with plan, Patient understood process and assisted with process Date of encounter [id number]
--- OUTSIDE RECORDS SUMMARY | 2025-01-26 14:11 | XMS_ITS | Patient Health Record ---
Author Organization [facility] Address [address] [place], [place] [phone] Care Team Providers Care Mulling Machine Operator Name Role Phone No, PCP Primary Care Provider Ken Puga Unavailable [phone] Reason For Referral No Information Plan Of Treatment No Information Insurance Providers Payer Name Payer Address Payer Phone Subscriber Number Group Number Insured Name Patient Relationship to Insured Coverage Start Date Coverage End Date [place] Standard [address] [place] [address] [id number] Elizabeth Patel Self - patient is the insured 4
== END 2025-01-26 12:13 | disposition home or self-care (01) ==
LOC: HO.LAB 12:12
PROVIDERS: PCP Physician Assistant; Visit Provider Student in an Organized Health Care Education/Training Program
DX: E06.3 Autoimmune thyroiditis (principal)
CPT/HCPCS: 36415; 84439; 84443; 99212

== ENCOUNTER 2025-01-26 12:27 | Outpatient (AMB) | payer OTHER, SELFPAY ==
[2025-01-26 12:42] VITALS: BP 108/62; PULSE 59; O2SAT 96; BMI 34.3
--- NOTE | 2025-01-26 12:42 | MHC.OFFVIS ---
Vital Signs 01/26/25 12:42 Height 5 ft 1.65 in Weight 185 lb 6.54 oz BMI 34.3 BP 108/62 Blood Pressure Location Lt brachial Position Sitting Pulse 59 Pulse Source Pulse Oximeter Pulse Oximetry (%) 96 Oxygen Delivery Method Room Air Intake Visit Reasons: Hypothyroidism Intake Note: Patient present today for Hypothyroidism follow up. 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 Accompanied by: Self / Same As Patient Allergies fluconazole [From DIFLUCAN] Allergy (Mild, Verified 01/26/25 12:46) RASH naproxen [NAPROXEN] Allergy (Mild, Verified 01/26/25 12:46) AGITATION aripiprazole [From ABILIFY] Adverse Reaction (Unknown, Verified 01/26/25 12:46) SI quetiapine [From SEROQUEL] Adverse Reaction (Unknown, Verified 01/26/25 12:46) VOMITING ziprasidone [From GEODON] Adverse Reaction (Unknown, Verified 01/26/25 12:46) SI Medication List - Last Reconciled 01/26/25 by Lakeisha Gil MD albuterol sulfate 90 mcg/actuation 2 inhalations inhalation Q6H PRN gabapentin 100 mg PO BEDTIME levothyroxine (Tirosint) 137 mcg PO DAILY umeclidinium-vilanterol 62.5-25 mcg/actuation (Anoro Ellipta) 1 ea inhalation DAILY HPI Comments Details: 34 years old female here today for follow up of hypothyroidism. Here with partner . HPI from initial visit Diagnosed with hypothyroidism at age 12/11 05/08/2024 TSH elevated at 19.5, levothyroxine was titrated up to 125 mcg daily. 08/01/2024 TSH noted to be elevated at 8.7 levothyroxine was titrated up to 137 mcg daily, she developed vomiting to this dose, as she has allergies to blue dye with nausea and vomiting. Subsequently she filled her levothyroxine 100 mcg daily prescription. Labs 09/26/2024 TSH 8.5 hi Free T4 1.42 normal. Says currently on 100 mcg of levothyroxine, appropriate administration and adherence. Takes levothyroxine first thing in the morning empty stomach waits 30 mins before breakfast Vomiting from blue dye. Bowel movements regular Periods regular In September lost 22 lbs says its because of her thyroid. Says her mood irritable . Energy is normal. Patient currently denies heat or cold intolerance, hair loss, palpitation, anxiety, , changes in appearance of eyes or vision changes, tremors, increased diaphoresis or dry skin. ? Patient denies any difficulty swallowing, pain on swallowing or voice changes or difficulty breathing. Patient denies any history of childhood neck radiation. Denies having ever used amiodarone or biotin supplements. Was on lithium for short period many years ago. Patient denies any family history of thyroid cancer . Maternal grandmother had hypothyroidism. no plans for She is sexually active Social history Smokes marijuana Not cigarettes Alcohol : 2 nips a day Unemployed , on disability Interval history On tirosint 137 mcg daily , started about 6 weeks ago Labs done today, results in process Reports improved mood and energy Physical exam General: sitting comfortably in no acute distress HEENT: normocephalic/atraumatic Neck: supple, symmetrical, no thyromegaly , no dorsocervical or supraclavicular fat pads Cardiac: normal heart sounds Pulm: normal breath sounds B/L, no added breath sounds Abd: not distended, no tenderness Extremities: no edema, no signs of myxedema Neuro: AAO x3, Speech: normal, no facial droop, moving all 4 extremities Laboratory Tests 11/24/24 13:58 TSH 50.18 H Free T4 0.70 L Thyroid Peroxidase Ab 49 H PFSH Medical History (Updated 11/24/24 @ 13:51 by Lakeisha Gil MD) Hypothyroidism Morbid obesity Asthma Thyroid disorder Umbilical pain Bipolar 1 disorder Surgical History Hx of cholecystectomy Family History (Updated 11/24/24 @ 13:17 by Laura Wilkinsno CMA) Father High blood pressure Maternal Aunt No problems noted. 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 She has required up titration of her levothyroxine medication in the past few months, however it seems like she required the 137 mcg of levothyroxine dosage which she could not tolerate due to blue dye in it. Given her allergic reaction of vomiting to dyes, she can not tolerate levothyroxine and has had adverse reaction to it, we will prescribe her Tirosint which does not have dyes in it. She was prescribed 137 mcg of Tirosint to start on 11/24/2024. Labs prior done on 11/24/2024 showed TSH was high at 50.18, free T4 low at 0.70. Plan: -continue Tirosint 137 mcg daily -discussed appropriate administration -counseled regarding need for increased thyroid medication in and to call our office if she ever becomes . 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
== END 2025-01-26 12:59 | disposition home or self-care (01) ==
PROVIDERS: PCP Physician Assistant; Visit Provider Student in an Organized Health Care Education/Training Program
DX: E06.3 Autoimmune thyroiditis (principal)
CPT/HCPCS: 99213

== ENCOUNTER 2025-04-02 12:28 | Outpatient (REF) | payer OTHER, SELFPAY ==
--- OUTSIDE RECORDS SUMMARY | 2025-04-02 13:36 | XMS_ITS | Patient Health Record ---
Author Organization [facility] Address [address], [place] [phone] Care Team Providers Care Auto Carrier Driver Name Role Phone GavinoZAjohn - DO NOT USE, no PCP Primary Care Prov ider Unavailable Ken Hermosillo Unavailable [phone] Reason For Referral No Information Plan Of Treatment No Information Insurance Providers Payer Name Payer Address Payer Phone Subscriber Number Group Number Insured Name Patient Relationship to Insured Coverage Start Date Coverage End Date [place] Medicaid Standard [address] [place] [address] [id number] Elizabeth Patel Self - patient is the insured 4
[2025-04-02 14:37] LABS: Free T4 (Free Thyroxine) 1.52 ng/dL (0.71-1.85); Thyroid Stimulating Hormone 0.17 uIU/mL (0.32-4.0)
== END 2025-04-02 12:29 | disposition home or self-care (01) ==
LOC: HO.LAB 12:28
PROVIDERS: PCP Physician Assistant; Visit Provider Student in an Organized Health Care Education/Training Program
DX: E06.3 Autoimmune thyroiditis (principal)
CPT/HCPCS: 36415; 84439; 84443

== ENCOUNTER 2025-04-07 12:28 | Outpatient (AMB) | payer OTHER, SELFPAY ==
--- NOTE | 2025-04-07 12:33 | A.OFFVIS_ITS ---
Vital Signs 04/07/25 12:36 Height 5 ft 1.65 in Weight 173 lb 11.588 oz BMI 32.1 BP 100/62 Blood Pressure Location Rt brachial Position Sitting Pulse 103 H Pulse Source Pulse Oximeter Pulse Oximetry (%) 98 Oxygen Delivery Method Room Air Intake Visit Reasons: Hypothyroidism Intake Note: Patient present today for Hypothyroidism follow up. 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: No Accompanied by: Self / Same As Patient Allergies fluconazole (From DIFLUCAN) Allergy (Mild, Verified 04/07/25 12:37) RASH naproxen (NAPROXEN) Allergy (Mild, Verified 04/07/25 12:37) AGITATION aripiprazole (From ABILIFY) Adverse Reaction (Unknown, Verified 04/07/25 12:37) SI quetiapine (From SEROQUEL) Adverse Reaction (Unknown, Verified 04/07/25 12:37) VOMITING ziprasidone (From GEODON) Adverse Reaction (Unknown, Verified 04/07/25 12:37) SI Medication List - Last Reconciled 04/07/25 by Lakeisha Gil MD albuterol sulfate 90 mcg/actuation 2 inhalations inhalation Q6H PRN levothyroxine (Tirosint) 137 mcg PO DAILY umeclidinium-vilanterol 62.5-25 mcg/actuation (Anoro Ellipta) 1 ea inhalation DAILY HPI Comments Details: 34 years old female here today for follow up of hypothyroidism. HPI from initial visit Diagnosed with hypothyroidism at age 10/11 05/08/2024 TSH elevated at 19.5, levothyroxine was titrated up to 125 mcg daily. 08/01/2024 TSH noted to be elevated at 8.7 levothyroxine was titrated up to 137 mcg daily, she developed vomiting to this dose, as she has allergies to blue dye with nausea and vomiting. Subsequently she filled her levothyroxine 100 mcg daily prescription. Labs 09/26/2024 TSH 8.5 hi Free T4 1.42 normal. Says currently on 100 mcg of levothyroxine, appropriate administration and adherence. Takes levothyroxine first thing in the morning empty stomach waits 30 mins before breakfast Vomiting from blue dye. Bowel movements regular Periods regular In September lost 22 lbs says its because of her thyroid. Says her mood irritable . Energy is normal. Patient currently denies heat or cold intolerance, hair loss, palpitation, anxiety, , changes in appearance of eyes or vision changes, tremors, increased diaphoresis or dry skin. ? Patient denies any difficulty swallowing, pain on swallowing or voice changes or difficulty breathing. Patient denies any history of childhood neck radiation. Denies having ever used amiodarone or biotin supplements. Was on lithium for short period many years ago. Patient denies any family history of thyroid cancer . Maternal grandmother had hypothyroidism. no plans for She is sexually active Social history Smokes marijuana Not cigarettes Alcohol : 2 nips a day Unemployed , on disability Interval history 01/26/2025 On tirosint 137 mcg daily , started about 6 weeks ago Labs done today, results in process Reports improved mood and energy Interval history 04/07/2025 Labs 01/26/2025: TSH 3.26, free T4 1.24 On Tirosint 137 mcg daily Most recent labs repeated 04/02/2025: TSH 0.17 which is low, free T4 normal at 1.52 Physical exam General: sitting comfortably in no acute distress HEENT: normocephalic/atraumatic Neck: supple, symmetrical, no thyromegaly Cardiac: normal heart sounds Pulm: normal breath sounds B/L, no added breath sounds Abd: not distended, no tenderness Laboratory Tests 11/24/24 13:58 TSH 50.18 H Free T4 0.70 L Thyroid Peroxidase Ab 49 H Laboratory Tests 01/26/25 04/02/25 12:20 12:41 TSH 3.26 0.17 L Free T4 1.24 1.52 [facility] Medical History (Updated 11/24/24 @ 13:51 by Lakeisha Gil MD) Hypothyroidism Morbid obesity Asthma Thyroid disorder Umbilical pain Bipolar 1 disorder Surgical History Hx of cholecystectomy Family History Father High blood pressure Maternal Aunt No problems noted. 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 She has required up titration of her levothyroxine medication in the past few months, Given her allergic reaction of vomiting to dyes especially blue dye, she can not tolerate levothyroxine and has had adverse reaction to it, and now she is on Tirosint which does not have dyes in it. She was prescribed 137 mcg of Tirosint to start on 11/24/2024. Labs prior done on 11/24/2024 showed TSH was high at 50.18, free T4 low at 0.70. Now On Tirosint 137 mcg daily Most recent labs repeated 04/02/2025: TSH 0.17 which is low, free T4 normal at 1.52 Plan: -reduce Tirosint to 125 mcg daily -ordered TSH and free T4 to be done in 6 weeks, we will reach out with the results -discussed appropriate administration -counseled regarding need for increased thyroid medication in and to call our office if she ever becomes . -follow up in 3 months Plan see above Orders: Orders Thyroid Stimulating Hormone 6 Weeks E06.3 - Autoimmune thyroiditis Free T4 (Free Thyroxine) 6 Weeks E06.3 - Autoimmune thyroiditis Medications: New Tirosint (levothyroxine) BRAND NAME Tirosint only LATISHA 0 No substitution allowed 125 mcg PO DAILY 30 caps 5RF NS Discontinued levothyroxine (Tirosint) Discontinued Reason: Doctor's Order 137 mcg PO DAILY 30 caps 5RF Patient Instructions: Reduce Tirosint to 125 mcg daily, new prescription sent to your pharmacy Repeat thyroid blood work in 6 weeks We will reach out with the results Follow up in 3 months Weigh today 173 lbs BP 100/62 mmHg Coding Level of Care Code Est Pt Level 4 (03783) Diagnoses 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
[2025-04-07 12:36] VITALS: BP 100/62; PULSE 103; O2SAT 98; BMI 32.1
--- OUTSIDE RECORDS SUMMARY | 2025-04-07 14:01 | XMS_ITS | Patient Health Record ---
Author Organization [facility] Address [address], [place] [id number] Care Team Providers Care Rv Repair Technician Name Role Phone NO, PCP Primary Care Provider Ken Hermosillo Unavailable [phone] Reason For Referral No Information Plan Of Treatment No Information Insurance Providers Payer Name Payer Address Payer Phone Subscriber Number Group Number Insured Name Patient Relationship to Insured Coverage Start Date Coverage End Date [place] Medicaid Standard [address] [place] [address] [id number] Elizabeth Patel Self - patient is the insured 4
== END 2025-04-07 12:48 | disposition home or self-care (01) ==
LOC: HO.ENCR 12:29
PROVIDERS: PCP Physician Assistant; Visit Provider Student in an Organized Health Care Education/Training Program
DX: E06.3 Autoimmune thyroiditis (principal)
CPT/HCPCS: 99214

== ENCOUNTER → 2025-04-07 12:28 | Outpatient (BNVA) | payer OTHER, SELFPAY | PROVIDERS: PCP Physician Assistant; Visit Provider Student in an Organized Health Care Education/Training Program | DX: E06.3 Autoimmune thyroiditis (principal) | CPT/HCPCS: 99212 ==

== ENCOUNTER 2025-07-07 09:18 | Outpatient (REF) | payer OTHER, SELFPAY ==
--- OUTSIDE RECORDS SUMMARY | 2025-07-07 10:56 | XMS_ITS ---
Author Name [facility] Organization Unknown Care Team Organization Name Specialty Phone Email Start Date End Da te [facility] ALKA [facility]Y Primary Care 08/22/2022 4
--- OUTSIDE RECORDS SUMMARY | 2025-07-07 10:56 | XMS_ITS | Patient Health Record ---
Author Organization [facility] Address [address] [place] [id number] Care Team Providers Care Lining Folder Name Role Phone NO, PCP Primary Care Provider Ken Hermosillo Unavailable [phone] Reason For Referral No Information Plan Of Treatment No Information Insurance Providers Payer Name Payer Address Payer Phone Subscriber Number Group Number Insured Name Patient Relationship to Insured Coverage Start Date Coverage End Date [place] Medicaid Standard [address] [place] [address] [id number] Elizabeth Patel Self - patient is the insured 4
[2025-07-07 11:28] LABS: Free T4 (Free Thyroxine) 1.18 ng/dL (0.71-1.85); Thyroid Stimulating Hormone 4.49 uIU/mL (0.32-4.0)
== END 2025-07-07 09:19 | disposition home or self-care (01) ==
LOC: HO.LAB 09:18
PROVIDERS: Visit Provider Student in an Organized Health Care Education/Training Program
DX: E06.3 Autoimmune thyroiditis (principal); Z79.890 Hormone replacement therapy; R94.6 Abnormal results of thyroid function studies
CPT/HCPCS: 36415; 84439; 84443; 99212

== ENCOUNTER 2025-07-07 13:21 | Outpatient (AMB) | payer OTHER, SELFPAY ==
[2025-07-07 13:26] VITALS: BP 108/58; PULSE 80; O2SAT 99; BMI 34.1
--- NOTE | 2025-07-07 13:26 | MHC.OFFVIS ---
Vital Signs 07/07/25 13:26 Height 5 ft 1.65 in Weight 184 lb 8.43 oz BMI 34.1 BP 108/58 L Blood Pressure Location Lt brachial Position Sitting Pulse 80 Pulse Source Pulse Oximeter Pulse Oximetry (%) 99 Oxygen Delivery Method Room Air Intake Visit Reasons: Hypothyroidism Intake Note: Patient present today for Hypothyroidism office visit. 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 Accompanied by: Self / Same As Patient Allergies fluconazole (From DIFLUCAN) Allergy (Mild, Verified 07/07/25 13:29) RASH naproxen (NAPROXEN) Allergy (Mild, Verified 07/07/25 13:29) AGITATION aripiprazole (From ABILIFY) Adverse Reaction (Unknown, Verified 07/07/25 13:29) SI quetiapine (From SEROQUEL) Adverse Reaction (Unknown, Verified 07/07/25 13:29) VOMITING ziprasidone (From GEODON) Adverse Reaction (Unknown, Verified 07/07/25 13:29) SI Medication List - Last Reconciled 07/07/25 by Lakeisha Gil MD albuterol sulfate 90 mcg/actuation 2 inhalations inhalation Q6H PRN Tirosint (levothyroxine) 125 mcg PO DAILY NS umeclidinium-vilanterol 62.5-25 mcg/actuation (Anoro Ellipta) 1 ea inhalation DAILY HPI Comments Details: 34 years old female here today for follow up of hypothyroidism. HPI from initial visit Diagnosed with hypothyroidism at age 10/11 05/08/2024 TSH elevated at 19.5, levothyroxine was titrated up to 125 mcg daily. 08/01/2024 TSH noted to be elevated at 8.7 levothyroxine was titrated up to 137 mcg daily, she developed vomiting to this dose, as she has allergies to blue dye with nausea and vomiting. Subsequently she filled her levothyroxine 100 mcg daily prescription. Labs 09/26/2024 TSH 8.5 hi Free T4 1.42 normal. Says currently on 100 mcg of levothyroxine, appropriate administration and adherence. Takes levothyroxine first thing in the morning empty stomach waits 30 mins before breakfast Vomiting from blue dye. Bowel movements regular Periods regular In September lost 22 lbs says its because of her thyroid. Says her mood irritable . Energy is normal. Patient currently denies heat or cold intolerance, hair loss, palpitation, anxiety, , changes in appearance of eyes or vision changes, tremors, increased diaphoresis or dry skin. ? Patient denies any difficulty swallowing, pain on swallowing or voice changes or difficulty breathing. Patient denies any history of childhood neck radiation. Denies having ever used amiodarone or biotin supplements. Was on lithium for short period many years ago. Patient denies any family history of thyroid cancer . Maternal grandmother had hypothyroidism. no plans for She is sexually active Social history Smokes marijuana Not cigarettes Alcohol : 2 nips a day Unemployed , on disability Interval history 01/26/2025 On tirosint 137 mcg daily , started about 6 weeks ago Labs done today, results in process Reports improved mood and energy Interval history 04/07/2025 Labs 01/26/2025: TSH 3.26, free T4 1.24 On Tirosint 137 mcg daily Most recent labs repeated 04/02/2025: TSH 0.17 which is low, free T4 normal at 1.52 Interval history 07/07/2025 Last visit 04/07/2025: Tirosint reduced to 125 mcg daily. Labs 07/07/2025 showed TSH of 4.49, free T4 1.18 Physical exam General: sitting comfortably in no acute distress HEENT: normocephalic/atraumatic Neck: supple, symmetrical, no thyromegaly Cardiac: normal heart sounds Pulm: normal breath sounds B/L, no added breath sounds Abd: not distended, no tenderness Laboratory Tests 11/24/24 13:58 TSH 50.18 H Free T4 0.70 L Thyroid Peroxidase Ab 49 H Laboratory Tests 01/26/25 04/02/25 12:20 12:41 TSH 3.26 0.17 L Free T4 1.24 1.52 Laboratory Tests 07/07/25 09:26 TSH 4.49 H Free T4 1.18 [facility] Medical History (Updated 11/24/24 @ 13:51 by Lakeisha Gil MD) Hypothyroidism Morbid obesity Asthma Thyroid disorder Umbilical pain Bipolar 1 disorder Surgical History Hx of cholecystectomy Family History Father High blood pressure Maternal Aunt No problems noted. 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 She has required up titration of her levothyroxine medication in the past few months, Given her allergic reaction of vomiting to dyes especially blue dye, she can not tolerate levothyroxine and has had adverse reaction to it, and now she is on Tirosint which does not have dyes in it. She was prescribed 137 mcg of Tirosint to start on 11/24/2024. Labs prior done on 11/24/2024 showed TSH was high at 50.18, free T4 low at 0.70. Now On Tirosint 137 mcg daily Most recent labs repeated 04/02/2025: TSH 0.17 which is low, free T4 normal at 1.52 Last visit 04/07/2025: Tirosint reduced to 125 mcg daily. Labs 07/07/2025 showed TSH of 4.49, free T4 1.18 At this point even though her TSH is mildly elevated, we will hold off on increasing the Tirosint 237 mcg daily as that was too much for her previously. We can continue to monitor her on the current dose. Plan: -continue Tirosint to 125 mcg daily -ordered TSH and free T4 to be done in 6 weeks, we will reach out with the results -discussed appropriate administration -counseled regarding need for increased thyroid medication in and to call our office if she ever becomes . 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
== END 2025-07-07 13:40 | disposition home or self-care (01) ==
LOC: HO.ENCR 13:21
PROVIDERS: PCP Physician Assistant; Visit Provider Student in an Organized Health Care Education/Training Program
DX: E06.3 Autoimmune thyroiditis (principal)
CPT/HCPCS: 99213